=== PATIENT | male | born 1950 | race Caucasian/White ===

== ENCOUNTER → 2023-02-28 09:30 | Outpatient (REF) | payer MEDICARE, SELFPAY ==
--- NOTE | 2023-02-28 09:39 | CA_ITS ---
Transthoracic Echocardiogram Patient (Last, First, Middle): Abhijit Jose A, Gender: Male Date of : 1950 Age: 73 Procedure Date: 02/28/2023 Procedure Type: Transthoracic Echocardiogram Location: OP Height: 167.64 cm Weight: 68.04 kg BSA: 1.77 m2 Heart Rate: bpm BP: 102 / 68 mmHg School Psychologist: NAIDA Referring MD: Osiel Reilly MD Symptoms: R06.00 [id number] Study Quality: Adequate ECG Rhythm: Sinus Conclusions: - The left ventricular systolic function is moderately decreased. The visually estimated ejection fraction is between 35-40%. - No obvious valvular pathology seen on this study. Findings Left Ventricle Normal left ventricular cavity size. There is normal left ventricular wall thickness. The left ventricular systolic function is moderately decreased. The visually estimated ejection fraction is between 35-40%. There is moderate global hypokinesis. Evidence suggests grade I (mild) diastolic dysfunction. LV peak GLS -9.7%. Right Ventricle Normal right ventricular cavity size and systolic function. Atria Both atria are normal in size. Aortic Valve There is a normal trileaflet aortic valve. There is no aortic valve stenosis. There is no aortic valve regurgitation. Mitral Valve The mitral valve appears normal. There is trace mitral valve regurgitation. There is no mitral valve stenosis. Pulmonic Valve The pulmonic valve is likely normal. There is trace pulmonic valve regurgitation. Tricuspid Valve Normal tricuspid valve structure. There is mild tricuspid valve regurgitation. There is no evidence of pulmonary hypertension. Great Vessels The asc aorta is normal in size. Venous The inferior vena cava is normal in size and collapses greater than 50% with inspiration. Pericardium/Pleural There is no evidence of pericardial effusion. Prior Study Comparison No prior study available for comparison. Recommendations, Care & Conclusions No obvious valvular pathology sPatienteen on this study. Measurements 2D Linear Measurements IVSd: 1.07 0.6-0.9/0.6-1.0 cm LVIDd: 4.62 3.9-5.3/4.2-5.9 cm LVIDd Index: 2.61 2.4-3.2/2.2-3.1 cm/m2 LVIDs: 3.89 2.0-3.6 cm LVPWd: 1.02 0.7-1.1 cm LA Diam: 3.70 2.7-3.8/3.0-4.0 cm LAIDs Index: 2.09 1.5-2.3 cm/m2 LV Mass: 211.64 67-162/88-224 g LV Mass Index: 119.57 43-95/49-115 g/m2 LVOT Diam: 2.30 3.0+(-)1.3 cm 2D Systolic Function EF 4C: 41.50 >55% EF 2C: 44.50 >55% EF BiP: 42.50 >55% Mitral Valve MV Pk E: 0.47 MV PK A: 0.65 MV Decel Time: 271.00 E/A: 0.70 E'Lateral: 6.20 E'Medial: 4.46 E/E' Med: 10.60 E/E' Lat: 7.60 PHT: 80.00 MVA PHT: 2.75 Decel Ashley: 1.74 Aortic Valve AoV Pk Gm: 1.09 AoV Mn Gm: 0.76 AoV VTI: 0.23 AoV Pk Grad: 5.00 Aov Mn Grad: 3.00 KIT Cont.VTI: 2.66 LVOT LVOT Pk Gm: 0.70 LVOT Mn Gm: 0.47 LVOT VTI: 0.15 LVOT Pk Grad: 2.00 LVOT Mn Grad: 1.00 LVOT Diam: 2.30 LVOT Area: 4.15 Diastolic Function MV Pk E: 0.47 MV Pk A: 0.65 E/A: 0.70 E'Medial: 4.46 E/E' Med: 10.60 E' Laterial: 6.20 E/E' Lat: 7.60 Right Ventricle TAPSE (mm): 21.60 TVS' Gm: 10.10 Tricuspid Valve TR Pk Mg: 2.13 TR Pk Grad: 18.00 RA Press: 3.00 RVSP: 21.00 Great Vessels Aorta Sinus of Valsalva: 3.38 2.0-3.[address] Ridge: 2.71 1.7-3.4 cm Ao Asc: 3.00 2.1-3.4 cm Updated in Other Vendor System with Status of Final Sb Kaiser MD electronically signed on 03/02/2023 2:37:05 PM with status of Final
== END ==
LOC: HO.CARD 09:30
PROVIDERS: PCP Family Medicine; Visit Provider Internal Medicine
DX: R06.00 Dyspnea, unspecified (principal)
CPT/HCPCS: 93306; 93356

== ENCOUNTER → 2023-02-28 09:39 | Outpatient (BNV) | payer MEDICARE, SELFPAY | PROVIDERS: PCP Family Medicine; Visit Provider Internal Medicine | DX: I36.1 Nonrheumatic tricuspid (valve) insufficiency (principal) | CPT/HCPCS: 93306 ==